=== PATIENT | female | born 1980 | race Caucasian/White ===

== ENCOUNTER 2019-06-12 12:13 | Emergency (ER) | payer SELFPAY ==
[2019-06-12 12:40] VITALS: BP 138/106
[2019-06-12 12:46] LABS: ABSOLUTE EOSINOPHILS # (AUTO) 0.2 10^3/uL (0.0-0.6); ABSOLUTE LYMPHOCYTES (AUTO) 1.8 10^3/uL (0.5-4.7); ABSOLUTE MONOCYTES (AUTO) 0.3 10^3/uL (0.1-1.4); ABSOLUTE NEUT (AUTO) 4.6 10^3/uL (1.7-8.2); BASOPHILS % (AUTO) 0.5 % (0-2); EOSINOPHILS % (AUTO) 2.3 % (0-6); HEMATOCRIT 38.9 % (36.0-47.0); HEMOGLOBIN 13.3 g/dL (12.0-15.5); LYMPHOCYTES % (AUTO) 26.1 % (13-45); MEAN CORPUSCULAR HEMOGLOBIN 30.1 pg (27.0-33.4); MEAN CORPUSCULAR HGB CONC 34.3 g/dL (32.0-36.0); MEAN CORPUSCULAR VOLUME 88 fl (80-97); MONOCYTES % (AUTO) 4.9 % (3-13); PLATELET COUNT 336 10^3/uL (150-450); RED BLOOD COUNT 4.43 10^6/uL (3.72-5.28); RED CELL DISTRIBUTION WIDTH 13.5 % (11.5-14.0); SEGMENTED NEUTROPHILS % (AUTO) 66.2 % (42-78); TOTAL CELLS COUNTED % (AUTO) 100 %; WHITE BLOOD COUNT 6.9 10^3/uL (4.0-10.5)
[2019-06-12 13:13] LABS: ALBUMIN 4.3 g/dL (3.5-5.0); ALKALINE PHOSPHATASE 86 U/L (38-126); ANION GAP 14 (5-19); ASPARTATE AMINO TRANSFERASE 17 U/L (14-36); BILIRUBIN,DIRECT 0.2 mg/dL (0.0-0.4); BILIRUBIN,TOTAL 0.6 mg/dL (0.2-1.3); BLOOD UREA NITROGEN 8 mg/dL (7-20); CALCIUM 9.7 mg/dL (8.4-10.2); CARBON DIOXIDE 23 mmol/L (22-30); CHLORIDE 103 mmol/L (98-107); GLUCOSE 109 mg/dL (75-110); POTASSIUM 3.9 mmol/L (3.6-5.0); TOTAL PROTEIN 7.8 g/dL (6.3-8.2)
[2019-06-12 13:14] LABS: ALCOHOL < 10 mg/dL (NONE DETECTED)
--- NOTE | 2019-06-12 14:18 | ER Document Report ---
Entered by YAIMA RUIZ SCRIBE 06/12/19 1351 Acting as scribe for:JERSEY SHELTON MD ED Seizure - General Chief Complaint: Probable Seizure Stated Complaint: POSSIBLE SEIZURE Time Seen by Provider: 06/12/19 13:41 Mode of Arrival: Medic Information source: Patient Notes: This 39 year old female patient with a history of seizures brought in by EMS presents to the ED today with complaints of a seizure that occurred prior to arrival. Patient states that she takes depakote and tegratol bid, but missed her dose today. Patient states that her last seizure was x2 weeks ago and that she has been having seizures for approximately 21 years. Patient notes that she rec ently moved to [place] from [place] x8 days ago. Patient reports biting her tongue, but denies a headache. During H&P, patient states adamantly that she "does not want to stay and that she has been here long enough". - Related Data Home Medications: Tegratol. Depakote Past Medical History - Social History Smoking Status: Unknown if Ever Smoked Cigarette use (# per day): No Chew tobacco use (# tins/day): No Smoking Education Provided: No Family History: Reviewed & Not Pertinent Patient has suicidal ideation: No Patient has homicidal ideation: No Neurological Medical History: Reports: Hx Seizures Past Surgical History: Reports: Hx Tubal Ligation Review of Systems - Review of Systems Constitutional: No symptoms reported EENT: See HPI, Other - Tongue bite Cardiovascular: No symptoms reported Respiratory: No symptoms reported Gastrointestinal: No symptoms reported Genitourinary: No symptoms reported Female Genitourinary: No symptoms reported Musculoskeletal: No symptoms reported Skin: No symptoms reported Hematologic/Lymphatic: No symptoms reported Neurological/Psychological: See HPI, Seizure. denies: Headaches -: Yes All other systems reviewed and negative Physical Exam - Vital signs Vitals: Pulse Ox 97 06/12/19 12:29 Interpretation: Normal - General General appearance: Appears well, Alert In distress: None - HEENT Head: Normocephalic, Atraumatic Eyes: Normal Pupils: PERRL Mouth/Lips: Other - Left lateral tongue agitation - Respiratory Respiratory status: No respiratory distress Chest status: Nontender Breath sounds: Normal Chest palpation: Normal - Cardiovascular Rhythm: Regular Heart sounds: Normal auscultation Murmur: No - Abdominal Inspection: Normal Distension: No distension Bowel sounds: Normal Tenderness: Nontender Organomegaly: No organomegaly - Back Back: Normal, Nontender - Extremities General upper extremity: Normal inspection General lower extremity: Normal inspection - Neurological Neuro grossly intact: Yes - Psychological Associated symptoms: Normal affect, Normal mood - Skin Skin Temperature: Warm Skin Moisture: Dry Skin Color: Normal Course - Vital Signs Vital signs: Temp Pulse Resp BP Pulse Ox 99.5 F 15 138/106 H 95 06/12/19 12:34 06/12/19 12:33 06/12/19 12:33 06/12/19 12:33 - Laboratory Result Diagrams: 06/12/19 12:20 06/12/19 12:20 Discharge - Discharge Clinical Impression: Seizure Condition: Stable Disposition: AGAINST MEDICAL ADVICE Additional Instructions: Seizure, Known Epileptic You have had a seizure. Seizures may "break through" in an epileptic due to stress of infection or injury, a change in blood chemistry, or drug and alcohol use. Another common cause is failure to take medication as prescribed. Your doctor has evaluated your situation for the likely cause of this seizure. It is important that you follow his advice concerning any medication changes and follow-up care. Further testing of anti-seizure medication levels in your blood may be necessary. If you have a pile driver engineer's license, it's important that you DO NOT DRIVE until given permission by your physician. This seizure must be reported to the pile driver engineer's license bureau. Call the doctor or return if seizures recur, or if new or unusual symptoms arise -- such as severe headache, confusion, excessive sleepiness, local weakness or numbness, neck stiffness, or fever. You have requested to leave the emergency department AGAINST MEDICAL ADVICE prior to completion of your evaluation and work-up today. Be sure to take your Tegretol and Depakote when you get home. Follow-up with a local medical doctor to manage your seizure disorder. RETURN TO THE EMERGENCY ROOM IF ANY NEW OR WORSENING SYMPTOMS. Scribe Attestation: 06/12/19 13:51 I personally performed the services described in the documentation, reviewed and edited the documentation which was dictated to the scribe in my presence, and it accurately records my words and actions. I personally performed the services described in the documentation, reviewed and edited the documentation which was dictated to the scribe in my presence, and it accurately records my words and actions.
--- NOTE | 2019-06-12 21:30 | EKG REPORT ---
SEVERITY:- OTHERWISE NORMAL ECG - SINUS TACHYCARDIA : Confirmed by: Debra Pinedo MD 12-Jun-2019 21:29:44
== END 2019-06-12 14:20 | disposition left against medical advice (07) ==
LOC: ER 12:13
DX: R56.9 Unspecified convulsions (principal); T42.6X6A Underdosing of other antiepileptic and sedative-hypnotic drugs, initial encounter; T42.1X6A Underdosing of iminostilbenes, initial encounter; Z91.14 Patient's other noncompliance with medication regimen; S01.552A Open bite of oral cavity, initial encounter; W50.3XXA Accidental bite by another person, initial encounter; Y93.89 Activity, other specified
CPT/HCPCS: 36415; 80053; 80156; 80164; 80307; 83735; 85025; 93005; 93010; 99284

== ENCOUNTER 2019-07-27 11:25 | Emergency (ER) | payer SELFPAY ==
--- NOTE | 2019-07-27 11:54 | ER Document Report ---
ED General - General Chief Complaint: Seizure Stated Complaint: POSSIBLE SEIZURE Time Seen by Provider: 07/27/19 11:45 Mode of Arrival: Medic Information source: Patient, Emergency Med Personnel Notes: This 39-year-old female with history of seizure presents to the emergency department post witnessed seizure. Patient reports she was at [facility] with her mom and boyfriend. Boyfriend reports he knows when she is about to have a seizure because she will turn her head and not respond to him. He reports she was sitting in a chair and he lowered her to the ground. He reports she had a seizure possibly up to 4 minutes. He is not sure how long it was he did not time it. She was not incontinent of urine. She reports she did not take her Depakote or Tegretol today. She just forgot. She reports that she does have enough of her medications. She denies recent sickness. Denies fever vomiting diarrhea. Patient reports she just has a headache now. - HPI Onset: Just prior to arrival Onset/Duration: Sudden Quality of pain: Achy Associated symptoms: None Exacerbated by: Denies Relieved by: Denies Similar symptoms previously: Yes Recently seen / treated by doctor: No Past Medical History - General Information source: Patient Last Menstrual Period: just finished - Social History Smoking Status: Unknown if Ever Smoked Cigarette use (# per day): No Frequency of alcohol use: None Drug Abuse: None Occupation: none Lives with: Family Family History: Reviewed & Not Pertinent Patient has suicidal ideation: No Patient has homicidal ideation: No Neurological Medical History: Reports: Hx Seizures Past Surgical History: Reports: Hx Tubal Ligation Review of Systems - Review of Systems Notes: Review HPI for review of systems., All other systems negative Physical Exam - Vital signs Vitals: Resp Pulse Ox 18 96 07/27/19 11:27 07/27/19 11:27 - General General appearance: Alert In distress: None - HEENT Head: Normocephalic Eyes: Normal, Scleral icterus Extraocular movements intact: Yes Pupils: PERRL Nasal: Normal Pharynx: Normal Neck: Normal, Supple. No: Lymphadenopathy - Respiratory Respiratory status: No respiratory distress Chest status: Nontender Breath sounds: Normal Chest palpation: Normal - Cardiovascular Rhythm: Regular Heart sounds: Normal auscultation Murmur: No - Abdominal Inspection: Normal Distension: No distension Bowel sounds: Normal Tenderness: Nontender Organomegaly: No organomegaly - Extremities General upper extremity: Normal ROM General lower extremity: Normal ROM - Neurological Neuro grossly intact: Yes Cognition: Normal Orientation: AAOx4 Brooks Coma Scale Eye Opening: Spontaneous [place] Coma Scale Verbal: Oriented Brooks Coma Scale Motor: Obeys Commands Hodgen Coma Scale Total: 15 Speech: Normal - Psychological Associated symptoms: Normal affect, Normal mood - Skin Skin Temperature: Warm Skin Moisture: Dry Skin Color: Normal Course - Re-evaluation Re-evalutation: 07/27/19 13:44 39-year-old female with history of seizures all her life presents emergency department post seizure. Seizure was witnessed by her boyfriend. She did not fall or hit her head. He lowered her to the ground. Labs unremarkable although patient was positive for cocaine in her urine. Also her levels of Depakote and Tegretol are low. She was instructed on importance of following up with her primary care provider to have this reviewed and possibly increased her dosages. She reports she goes to the [facility] department for her seizure medication. She was encouraged to quit using cocaine. Patient also reports that she is homeless. apartment house manager was contacted and will give her information regarding the snf here in [facility]. Laboratory 07/27/19 07/27/19 07/27/19 11:51 11:51 11:51 WBC 7.7 RBC 4.40 Hgb 13.5 Hct 39.4 MCV 90 MCH 30.8 MCHC 34.4 RDW 14.4 H Plt Count 326 Lymph % (Auto) 13.4 [place] % (Auto) 4.3 Eos % (Auto) 0.7 Baso % (Auto) 0.5 Absolute Neuts (auto) 6.2 Absolute Lymphs (auto) 1.0 Absolute Monos (auto) 0.3 Absolute Eos (auto) 0.1 Absolute Basos (auto) 0.0 Seg Neutrophils % 81.1 H Sodium 140.8 Potassium 4.0 Chloride 107 Carbon Dioxide 26 Anion Gap 8 BUN 10 Creatinine 0.63 Est GFR ( Amer) > 60 Est GFR (MDRD) Non-Af > 60 Glucose 116 H Calcium 9.1 Magnesium 2.3 Total Bilirubin 0.3 Direct Bilirubin 0.3 Neonat Total Bilirubin Not Reportable Neonat Direct Bilirubin Not Reportable Neonat Indirect Bili Not Reportable AST 17 ALT 11 Alkaline Phosphatase 57 Total Protein 7.3 Albumin 4.0 Serum HCG, Qual Urine Color Urine Appearance Urine pH Ur Specific Lohman Urine Protein Urine Glucose (UA) Urine Ketones Urine Blood Urine Nitrite Urine Bilirubin Urine Urobilinogen Ur Leukocyte Esterase Urine WBC (Auto) Urine RBC (Auto) U Hyaline Cast (Auto) Urine Bacteria (Auto) Squamous Epi Cells Auto Urine Mucus (Auto) Urine Ascorbic Acid Urine Opiates Screen Urine Methadone Screen Ur Barbiturates Screen Valproic Acid < 10.0 L Carbamazepine Ur Phencyclidine Scrn Ur Amphetamines Screen U Benzodiazepines Scrn Urine Cocaine Screen U Marijuana (THC) Screen Serum Alcohol < 10 07/27/19 07/27/19 07/27/19 11:51 11:55 12:50 WBC RBC Hgb Hct MCV MCH MCHC RDW Plt Count Lymph % (Auto) [place] % (Auto) Eos % (Auto) Baso % (Auto) Absolute Neuts (auto) Absolute Lymphs (auto) Absolute Monos (auto) Absolute Eos (auto) Absolute Basos (auto) Seg Neutrophils % Sodium Potassium Chloride Carbon Dioxide Anion Gap BUN Creatinine Est GFR ( Amer) Est GFR (MDRD) Non-Af Glucose Calcium Magnesium Total Bilirubin Direct Bilirubin Neonat Total Bilirubin Neonat Direct Bilirubin Neonat Indirect Bili AST ALT Alkaline Phosphatase Total Protein Albumin Serum HCG, Qual NEGATIVE Urine Color YELLOW Urine Appearance SLIGHTLY-CLOUDY Urine pH 5.0 Ur Specific Lohman 1.020 Urine Protein 100 H Urine Glucose (UA) NEGATIVE Urine Ketones NEGATIVE Urine Blood LARGE H Urine Nitrite NEGATIVE Urine Bilirubin NEGATIVE Urine Urobilinogen NEGATIVE Ur Leukocyte Esterase NEGATIVE Urine WBC (Auto) 8 Urine RBC (Auto) 107 U Hyaline Cast (Auto) 6 Urine Bacteria (Auto) TRACE Squamous Epi Cells Auto 2 Urine Mucus (Auto) RARE Urine Ascorbic Acid NEGATIVE Urine Opiates Screen Urine Methadone Screen Ur Barbiturates Screen Valproic Acid Carbamazepine < 2.4 L Ur Phencyclidine Scrn Ur Amphetamines Screen U Benzodiazepines Scrn Urine Cocaine Screen U Marijuana (THC) Screen Serum Alcohol 07/27/19 12:50 WBC RBC Hgb Hct MCV MCH MCHC RDW Plt Count Lymph % (Auto) [place] % (Auto) Eos % (Auto) Baso % (Auto) Absolute Neuts (auto) Absolute Lymphs (auto) Absolute Monos (auto) Absolute Eos (auto) Absolute Basos (auto) Seg Neutrophils % Sodium Potassium Chloride Carbon Dioxide Anion Gap BUN Creatinine Est GFR ( Amer) Est GFR (MDRD) Non-Af Glucose Calcium Magnesium Total Bilirubin Direct Bilirubin Neonat Total Bilirubin Neonat Direct Bilirubin Neonat Indirect Bili AST ALT Alkaline Phosphatase Total Protein Albumin Serum HCG, Qual Urine Color Urine Appearance Urine pH Ur Specific Lohman Urine Protein Urine Glucose (UA) Urine Ketones Urine Blood Urine Nitrite Urine Bilirubin Urine Urobilinogen Ur Leukocyte Esterase Urine WBC (Auto) Urine RBC (Auto) U Hyaline Cast (Auto) Urine Bacteria (Auto) Squamous Epi Cells Auto Urine Mucus (Auto) Urine Ascorbic Acid Urine Opiates Screen NEGATIVE Urine Methadone Screen NEGATIVE Ur Barbiturates Screen NEGATIVE Valproic Acid Carbamazepine Ur Phencyclidine Scrn NEGATIVE Ur Amphetamines Screen NEGATIVE U Benzodiazepines Scrn NEGATIVE Urine Cocaine Screen UNCONFIRMED POSITIVE U Marijuana (THC) Screen NEGATIVE Serum Alcohol - Vital Signs Vital signs: Temp Pulse Resp BP Pulse Ox 98.2 F 18 101/75 99 07/27/19 12:04 07/27/19 14:01 07/27/19 14:01 07/27/19 14:01 - Laboratory Result Diagrams: 07/27/19 11:51 07/27/19 11:51 Laboratory results interpreted by me: 07/27/19 07/27/19 07/27/19 11:51 11:51 11:51 RDW 14.4 H Seg Neutrophils % 81.1 H Glucose 116 H Urine Protein Urine Blood Valproic Acid < 10.0 L Carbamazepine 07/27/19 07/27/19 11:55 12:50 RDW Seg Neutrophils % Glucose Urine Protein 100 H Urine Blood LARGE H Valproic Acid Carbamazepine < 2.4 L Discharge - Discharge Clinical Impression: Seizure, Cocaine abuse Condition: Stable Disposition: HOME, SELF-CARE Instructions: Cocaine Abuse ([facility]), Seizure, Known Epileptic ([facility]) Additional Instructions: *You have been evaluated post seizure, cocaine abuse *Take medication as prescribed *Avoid using cocaine *Follow up with your primary care provider within one week for recheck and to discuss your dosages of Depakote and Tegretol. Your therapeutic levels of both medications were low. *Return to ED for worsening condition, changes, needs, concerns
[2019-07-27] MEDS ORDERED: IBUPROFEN 800 MG TABLET PO ONE (11:58)
[2019-07-27 12:03] LABS: ABSOLUTE EOSINOPHILS # (AUTO) 0.1 10^3/uL (0.0-0.6); ABSOLUTE MONOCYTES (AUTO) 0.3 10^3/uL (0.1-1.4); ABSOLUTE NEUT (AUTO) 6.2 10^3/uL (1.7-8.2); BASOPHILS % (AUTO) 0.5 % (0-2); EOSINOPHILS % (AUTO) 0.7 % (0-6); HEMATOCRIT 39.4 % (36.0-47.0); HEMOGLOBIN 13.5 g/dL (12.0-15.5); LYMPHOCYTES % (AUTO) 13.4 % (13-45); MEAN CORPUSCULAR HEMOGLOBIN 30.8 pg (27.0-33.4); MEAN CORPUSCULAR HGB CONC 34.4 g/dL (32.0-36.0); MEAN CORPUSCULAR VOLUME 90 fl (80-97); MONOCYTES % (AUTO) 4.3 % (3-13); PLATELET COUNT 326 10^3/uL (150-450); RED CELL DISTRIBUTION WIDTH 14.4 % (11.5-14.0); SEGMENTED NEUTROPHILS % (AUTO) 81.1 % (42-78); TOTAL CELLS COUNTED % (AUTO) 100 %; WHITE BLOOD COUNT 7.7 10^3/uL (4.0-10.5)
[2019-07-27 12:32] LABS: ALKALINE PHOSPHATASE 57 U/L (38-126); ANION GAP 8 (5-19); ASPARTATE AMINO TRANSFERASE 17 U/L (14-36); BILIRUBIN,DIRECT 0.3 mg/dL (0.0-0.4); BILIRUBIN,TOTAL 0.3 mg/dL (0.2-1.3); BLOOD UREA NITROGEN 10 mg/dL (7-20); CALCIUM 9.1 mg/dL (8.4-10.2); CARBON DIOXIDE 26 mmol/L (22-30); CHLORIDE 107 mmol/L (98-107); GLUCOSE 116 mg/dL (75-110); TOTAL PROTEIN 7.3 g/dL (6.3-8.2)
[2019-07-27 12:34] LABS: ALCOHOL < 10 mg/dL (NONE DETECTED)
[2019-07-27 13:06] LABS: APPEARANCE,URINE SLIGHTLY-CLOUDY; BILIRUBIN,URINE NEGATIVE (NEGATIVE); COLOR,URINE YELLOW; GLUCOSE, URINE NEGATIVE (NEGATIVE); KETONES,URINE NEGATIVE (NEGATIVE); LEUKOCYTE ESTERASE,URINE NEGATIVE (NEGATIVE); NITRITE,URINE NEGATIVE (NEGATIVE); PROTEIN,URINE 100 mg/dL (NEGATIVE); UROBILINOGEN,URINE NEGATIVE mg/dL (<2.0)
[2019-07-27 13:30] LABS: URINE AMPHETAMINES SCREEN NEGATIVE; URINE BARBITURATES SCREEN NEGATIVE; URINE BENZODIAZEPINES SCREEN NEGATIVE; URINE MARIJUANA (THC) SCREEN NEGATIVE; URINE METHADONE SCREEN NEGATIVE; URINE PHENCYCLIDINE SCREEN NEGATIVE
[2019-07-27 13:31] LABS: URINE COCAINE SCREEN UNCONFIRMED POSITIVE
--- NOTE | 2019-07-27 13:55 | EKG REPORT ---
SEVERITY:- NORMAL ECG - SINUS RHYTHM : Confirmed by: Debra Pinedo MD 27-Jul-2019 13:54:06
[2019-07-27 14:21] VITALS: BP 101/75
== END 2019-07-27 14:20 | disposition home or self-care (01) ==
LOC: ER 11:25
DX: G40.909 Epilepsy, unspecified, not intractable, without status epilepticus (principal); Z98.51 Tubal ligation status
CPT/HCPCS: 36415; 80053; 80156; 80164; 80307; 81001; 83735; 84703; 85025; 93005; 93010; 99284

== ENCOUNTER 2019-10-06 14:36 | Emergency (ER) | payer SELFPAY ==
[2019-10-06] MEDS ORDERED: IBUPROFEN 800 MG TABLET PO ONE (15:21)
--- NOTE | 2019-10-06 15:23 | ER Document Report ---
ED Medical Screen (RME) - General Chief Complaint: Seizure Stated Complaint: POSSIBLE SEIZURE Time Seen by Provider: 10/06/19 15:16 Mode of Arrival: Medic Information source: Patient Notes: 39-year-old female with history of cocaine abuse and seizures presents to the emergency department with report of seizure. Patient was walking outside with her boyfriend when she had a seizure. Patient is supposed to be taking Tegretol and Depakote but has not taken any medication since June when she was here last. Patient is homeless. Denies urinary incontinence. Reports she has a headache now. Unsure how long the seizure was. No complaints of fever, vomiting or diarrhea. Patient reports she has not used cocaine in a while. I have greeted and performed a rapid initial assessment of this patient. A comprehensive ED assessment and evaluation of the patient, analysis of test results and completion of the medical decision making process will be conducted by additional ED providers. TRAVEL OUTSIDE OF THE [place] IN LAST 30 DAYS: No Past Medical History - General Information source: Patient Last Menstrual Period: current Neurological Medical History: Reports: Hx Seizures Past Surgical History: Reports: Hx Tubal Ligation Physical Exam - Vital signs Vitals: Temp Pulse Resp BP Pulse Ox 99.5 F 86 16 119/81 98 10/06/19 14:42 10/06/19 14:42 10/06/19 14:42 10/06/19 14:42 10/06/19 14:42 Course - Vital Signs Vital signs: Temp Pulse Resp BP Pulse Ox 99.5 F 86 16 119/81 98 10/06/19 14:42 10/06/19 14:42 10/06/19 14:42 10/06/19 14:42 10/06/19 14:42
[2019-10-06 15:54] LABS: ABSOLUTE LYMPHOCYTES (AUTO) 1.3 10^3/uL (0.5-4.7); ABSOLUTE MONOCYTES (AUTO) 0.4 10^3/uL (0.1-1.4); BASOPHILS % (AUTO) 0.3 % (0-2); EOSINOPHILS % (AUTO) 0.2 % (0-6); HEMATOCRIT 36.8 % (36.0-47.0); HEMOGLOBIN 12.6 g/dL (12.0-15.5); LYMPHOCYTES % (AUTO) 14.6 % (13-45); MEAN CORPUSCULAR HEMOGLOBIN 30.5 pg (27.0-33.4); MEAN CORPUSCULAR HGB CONC 34.4 g/dL (32.0-36.0); MEAN CORPUSCULAR VOLUME 89 fl (80-97); MONOCYTES % (AUTO) 4.7 % (3-13); PLATELET COUNT 323 10^3/uL (150-450); RED BLOOD COUNT 4.15 10^6/uL (3.72-5.28); RED CELL DISTRIBUTION WIDTH 14.7 % (11.5-14.0); SEGMENTED NEUTROPHILS % (AUTO) 80.2 % (42-78); TOTAL CELLS COUNTED % (AUTO) 100 %; WHITE BLOOD COUNT 8.7 10^3/uL (4.0-10.5)
--- NOTE | 2019-10-06 16:13 | ER Document Report ---
ED Seizure - General Chief Complaint: Seizure Stated Complaint: POSSIBLE SEIZURE Time Seen by Provider: 10/06/19 15:16 Primary Care Provider: DOM DEL RIO DO [NO LOCAL MD] - Follow up in 3-5 days (Call to establish outpatient care.) Mode of Arrival: Medic Information source: Patient Notes: 39-year-old female past medical history significant for anxiety and grand mal seizure disorder for years. Presents emergency room after having a seizure while walking down the street with her boyfriend. Patient does not recall what happened. States boyfriend did not give any information. She states that she bit her tongue. Denies any other injuries. Denies any incontinence. Denies being postictal. Patient is currently without seizure medications. Does not know her current dosages. Patient states she does not have insurance and therefore cannot afford her medications. Patient does admit to doing crack cocaine. No other complaints. Currently on her menstrual cycle. TRAVEL OUTSIDE OF THE [place] IN LAST 30 DAYS: No - Related Data Allergies/Adverse Reactions: No Known Allergies Allergy (Unverified 10/06/19 15:25) Past Medical History - General Information source: Patient Last Menstrual Period: current - Social History Smoking Status: Current Every Day Smoker Chew tobacco use (# tins/day): No Frequency of alcohol use: None Drug Abuse: Cocaine, Heroin Lives with: Friend Family History: Reviewed & Not Pertinent Patient has homicidal ideation: No Neurological Medical History: Reports: Hx Seizures Past Surgical History: Reports: Hx Tubal Ligation Review of Systems - Review of Systems Constitutional: No symptoms reported Cardiovascular: No symptoms reported Respiratory: No symptoms reported Musculoskeletal: No symptoms reported Neurological/Psychological: Seizure -: Yes All other systems reviewed and negative Physical Exam - Vital signs Vitals: Temp 99.5 F 10/06/19 14:37 - General General appearance: Appears well, Alert In distress: None - HEENT Head: Normocephalic, Atraumatic. No: Goodwin's sign, Rac[place]'s eyes Cornea: Superficial foreign body Pupils: PERRL Fundascopic: Normal Mouth/Lips: Other - There is a small abrasion noted to the left aspect of the tongue. There is no active bleeding noted. - Respiratory Respiratory status: No respiratory distress Chest status: Nontender Breath sounds: Normal Chest palpation: Normal - Cardiovascular Rhythm: Regular Heart sounds: Normal auscultation Murmur: No - Back Back: Normal, Nontender - Extremities General upper extremity: Normal inspection, Nontender, Normal color, Normal ROM, Normal temperature General lower extremity: Normal inspection, Nontender, Normal color, Normal ROM, Normal temperature, Normal weight bearing. No: Lisseth's sign - Neurological Neuro grossly intact: Yes Cognition: Normal Orientation: AAOx4 [place] Coma Scale Eye Opening: Spontaneous [place] Coma Scale Verbal: Oriented [place] Coma Scale Motor: Obeys Commands Brooks Coma Scale Total: 15 Speech: Normal Motor strength normal: LUE, RUE, LLE, RLE Sensory: Normal - Skin Skin Temperature: Warm Skin Moisture: Dry Skin Color: Normal Course - Re-evaluation Re-evalutation: 10/06/19 18:10 Patient is resting comfortably no acute distress. No seizures since arrival to the emergency room. She is currently asymptomatic. Neurologically and neurovascularly intact. Ambulatory with a steady gait. Patient currently not taking her medications secondary to no insurance. Offered to try to reach out to patient's pharmacy to find out her medication dosages. Patient is not interested in getting any medications today. She states she will follow-up with the health department this week for ongoing care of her chronic seizures. Reviewed all lab results with patient. She was counseled on need to stop use of cocaine. Patient was given strict return to the emergency room guidelines. Return for any new or worsening symptoms. All questions were answered. Patient verbalized understanding and agrees with plan of care. 10/06/19 20:52 - Vital Signs Vital signs: Temp Pulse Resp BP Pulse Ox 98.7 F 80 16 108/49 L 100 10/06/19 18:21 10/06/19 18:21 10/06/19 18:21 10/06/19 18:21 10/06/19 18:21 - Laboratory Result Diagrams: 10/06/19 15:35 10/06/19 15:35 Laboratory results interpreted by me: 10/06/19 10/06/19 10/06/19 15:35 15:35 16:52 RDW 14.7 H Seg Neutrophils % 80.2 H Urine Protein Urine Ketones Urine Blood Urine Urobilinogen Urine Ascorbic Acid Valproic Acid < 10.0 L Carbamazepine < 2.2 L 10/06/19 16:52 RDW Seg Neutrophils % Urine Protein 100 H Urine Ketones 20 H Urine Blood LARGE H Urine Urobilinogen 2.0 H Urine Ascorbic Acid 40 H Valproic Acid Carbamazepine Discharge - Discharge Clinical Impression: Seizure disorder Condition: Stable Disposition: HOME, SELF-CARE Instructions: Seizure, Known Epileptic ([facility]) Additional Instructions: It is imperative that you follow-up with the free clinic for management of your chronic seizure disorder and chronic seizure medications. Return for any new or worsening symptoms. Referrals: DOM DEL RIO DO [NO LOCAL MD] - Follow up in 3-5 days (Call to establish outpatient care.)
[2019-10-06 16:16] LABS: ALBUMIN 4.2 g/dL (3.5-5.0); ALKALINE PHOSPHATASE 65 U/L (38-126); ANION GAP 6 (5-19); ASPARTATE AMINO TRANSFERASE 24 U/L (14-36); BILIRUBIN,TOTAL 0.5 mg/dL (0.2-1.3); BLOOD UREA NITROGEN 9 mg/dL (7-20); CALCIUM 9.3 mg/dL (8.4-10.2); CARBON DIOXIDE 27 mmol/L (22-30); CHLORIDE 106 mmol/L (98-107); GLUCOSE 110 mg/dL (75-110); POTASSIUM 4.3 mmol/L (3.6-5.0); TOTAL PROTEIN 7.3 g/dL (6.3-8.2)
[2019-10-06 17:38] LABS: APPEARANCE,URINE SLIGHTLY-CLOUDY; BILIRUBIN,URINE NEGATIVE (NEGATIVE); GLUCOSE, URINE NEGATIVE (NEGATIVE); KETONES,URINE 20 mg/dL (NEGATIVE); LEUKOCYTE ESTERASE,URINE NEGATIVE (NEGATIVE); NITRITE,URINE NEGATIVE (NEGATIVE); PROTEIN,URINE 100 mg/dL (NEGATIVE); URINE SPECIFIC GRAVITY 1.024
[2019-10-06 17:39] LABS: COLOR,URINE RED
[2019-10-06 17:47] LABS: URINE AMPHETAMINES SCREEN NEGATIVE; URINE BARBITURATES SCREEN NEGATIVE; URINE BENZODIAZEPINES SCREEN NEGATIVE; URINE MARIJUANA (THC) SCREEN NEGATIVE; URINE METHADONE SCREEN NEGATIVE; URINE PHENCYCLIDINE SCREEN NEGATIVE
[2019-10-06 17:48] LABS: URINE COCAINE SCREEN UNCONFIRMED POSITIVE
[2019-10-06 18:22] VITALS: BP 108/49
== END 2019-10-06 18:21 | disposition home or self-care (01) ==
LOC: ER 14:36
DX: G40.409 Other generalized epilepsy and epileptic syndromes, not intractable, without status epilepticus (principal); T50.906A Underdosing of unspecified drugs, medicaments and biological substances, initial encounter; Z91.120 Patient's intentional underdosing of medication regimen due to financial hardship; Z91.14 Patient's other noncompliance with medication regimen; S00.512A Abrasion of oral cavity, initial encounter; X58.XXXA Exposure to other specified factors, initial encounter; F14.10 Cocaine abuse, uncomplicated; F11.10 Opioid abuse, uncomplicated; F17.200 Nicotine dependence, unspecified, uncomplicated
CPT/HCPCS: 36415; 80053; 80156; 80164; 80307; 81001; 81025; 85025; 99284

== ENCOUNTER 2019-11-06 22:24 | Emergency (ER) | payer SELFPAY ==
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
[2019-11-07 03:17] LABS: ABSOLUTE BASOPHILS # (AUTO) 0.1 10^3/uL (0.0-0.2); ABSOLUTE EOSINOPHILS # (AUTO) 0.2 10^3/uL (0.0-0.6); ABSOLUTE LYMPHOCYTES (AUTO) 2.9 10^3/uL (0.5-4.7); ABSOLUTE MONOCYTES (AUTO) 0.4 10^3/uL (0.1-1.4); ABSOLUTE NEUT (AUTO) 4.1 10^3/uL (1.7-8.2); EOSINOPHILS % (AUTO) 2.8 % (0-6); HEMATOCRIT 35.6 % (36.0-47.0); LYMPHOCYTES % (AUTO) 37.8 % (13-45); MEAN CORPUSCULAR HEMOGLOBIN 29.8 pg (27.0-33.4); MEAN CORPUSCULAR HGB CONC 33.9 g/dL (32.0-36.0); MEAN CORPUSCULAR VOLUME 88 fl (80-97); MONOCYTES % (AUTO) 5.1 % (3-13); PLATELET COUNT 373 10^3/uL (150-450); RED BLOOD COUNT 4.04 10^6/uL (3.72-5.28); RED CELL DISTRIBUTION WIDTH 14.6 % (11.5-14.0); SEGMENTED NEUTROPHILS % (AUTO) 53.3 % (42-78); TOTAL CELLS COUNTED % (AUTO) 100 %; WHITE BLOOD COUNT 7.8 10^3/uL (4.0-10.5)
[2019-11-07 03:35] LABS: APPEARANCE,URINE TURBID; BILIRUBIN,URINE NEGATIVE (NEGATIVE); COLOR,URINE AMBER; GLUCOSE, URINE NEGATIVE (NEGATIVE); KETONES,URINE NEGATIVE (NEGATIVE); LEUKOCYTE ESTERASE,URINE TRACE (NEGATIVE); NITRITE,URINE NEGATIVE (NEGATIVE); PROTEIN,URINE NEGATIVE (NEGATIVE); URINE SPECIFIC GRAVITY 1.025
[2019-11-07 03:40] LABS: ACETAMINOPHEN < 10 ug/mL (10-30); ALBUMIN 4.4 g/dL (3.5-5.0); ALCOHOL < 10 mg/dL (NONE DETECTED); ALKALINE PHOSPHATASE 82 U/L (38-126); ANION GAP 8 (5-19); ASPARTATE AMINO TRANSFERASE 17 U/L (14-36); BILIRUBIN,TOTAL 0.5 mg/dL (0.2-1.3); BLOOD UREA NITROGEN 12 mg/dL (7-20); CALCIUM 9.9 mg/dL (8.4-10.2); CARBON DIOXIDE 29 mmol/L (22-30); CHLORIDE 102 mmol/L (98-107); GLUCOSE 108 mg/dL (75-110); POTASSIUM 4.6 mmol/L (3.6-5.0); SALICYLATE < 1.0 mg/dL (2.0-20.0); TOTAL PROTEIN 7.8 g/dL (6.3-8.2)
[2019-11-07 03:48] LABS: ADD MANUAL MICROSCOPIC YES
[2019-11-07 03:49] LABS: BACTERIA,URINE 1+ /HPF; CALCIUM OXALATE CRYSTALS,UR FEW /HPF
[2019-11-07 04:00] LABS: URINE AMPHETAMINES SCREEN NEGATIVE; URINE BARBITURATES SCREEN NEGATIVE; URINE BENZODIAZEPINES SCREEN NEGATIVE; URINE MARIJUANA (THC) SCREEN NEGATIVE; URINE METHADONE SCREEN NEGATIVE; URINE PHENCYCLIDINE SCREEN NEGATIVE
[2019-11-07 04:06] LABS: URINE COCAINE SCREEN UNCONFIRMED POSITIVE
[2019-11-07 08:06] VITALS: BP 122/80
--- NOTE | 2019-11-07 11:11 | EKG REPORT ---
SEVERITY:- NORMAL ECG - SINUS RHYTHM : Confirmed by: Debra Pinedo MD 07-Nov-2019 11:09:59
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
== END 2019-11-07 13:13 | disposition home or self-care (01) ==
LOC: ER 22:24
DX: R45.851 Suicidal ideations (principal); F31.9 Bipolar disorder, unspecified; F41.9 Anxiety disorder, unspecified; Z65.8 Other specified problems related to psychosocial circumstances; F14.90 Cocaine use, unspecified, uncomplicated; Z59.0 Homelessness; G40.909 Epilepsy, unspecified, not intractable, without status epilepticus; Z79.899 Other long term (current) drug therapy; F43.9 Reaction to severe stress, unspecified; F17.200 Nicotine dependence, unspecified, uncomplicated; Z91.14 Patient's other noncompliance with medication regimen
CPT/HCPCS: 36415; 80053; 80307; 81001; 84703; 85025; 93005; 93010; 99284

== ENCOUNTER 2019-11-07 21:48 | Emergency (ER) | payer SELFPAY ==
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
[2019-11-08 00:05] LABS: ABSOLUTE EOSINOPHILS # (AUTO) 0.2 10^3/uL (0.0-0.6); ABSOLUTE LYMPHOCYTES (AUTO) 2.6 10^3/uL (0.5-4.7); ABSOLUTE MONOCYTES (AUTO) 0.5 10^3/uL (0.1-1.4); ABSOLUTE NEUT (AUTO) 4.8 10^3/uL (1.7-8.2); BASOPHILS % (AUTO) 0.6 % (0-2); HEMATOCRIT 31.2 % (36.0-47.0); HEMOGLOBIN 10.8 g/dL (12.0-15.5); LYMPHOCYTES % (AUTO) 32.4 % (13-45); MEAN CORPUSCULAR HEMOGLOBIN 30.2 pg (27.0-33.4); MEAN CORPUSCULAR HGB CONC 34.5 g/dL (32.0-36.0); MEAN CORPUSCULAR VOLUME 87 fl (80-97); MONOCYTES % (AUTO) 6.1 % (3-13); PLATELET COUNT 306 10^3/uL (150-450); RED BLOOD COUNT 3.57 10^6/uL (3.72-5.28); RED CELL DISTRIBUTION WIDTH 13.8 % (11.5-14.0); SEGMENTED NEUTROPHILS % (AUTO) 58.9 % (42-78); TOTAL CELLS COUNTED % (AUTO) 100 %; WHITE BLOOD COUNT 8.1 10^3/uL (4.0-10.5)
[2019-11-08 00:07] LABS: APPEARANCE,URINE CLEAR; BILIRUBIN,URINE NEGATIVE (NEGATIVE); COLOR,URINE YELLOW; GLUCOSE, URINE NEGATIVE (NEGATIVE); KETONES,URINE NEGATIVE (NEGATIVE); LEUKOCYTE ESTERASE,URINE NEGATIVE (NEGATIVE); NITRITE,URINE NEGATIVE (NEGATIVE); PROTEIN,URINE NEGATIVE (NEGATIVE); URINE SPECIFIC GRAVITY 1.023
[2019-11-08 00:18] LABS: ALBUMIN 3.6 g/dL (3.5-5.0); ALKALINE PHOSPHATASE 72 U/L (38-126); ANION GAP 5 (5-19); ASPARTATE AMINO TRANSFERASE 13 U/L (14-36); BILIRUBIN,TOTAL 0.4 mg/dL (0.2-1.3); BLOOD UREA NITROGEN 13 mg/dL (7-20); CALCIUM 8.8 mg/dL (8.4-10.2); CARBON DIOXIDE 27 mmol/L (22-30); CHLORIDE 104 mmol/L (98-107); GLUCOSE 100 mg/dL (75-110); POTASSIUM 3.8 mmol/L (3.6-5.0); TOTAL PROTEIN 6.6 g/dL (6.3-8.2)
[2019-11-08 00:20] LABS: ACETAMINOPHEN < 10 ug/mL (10-30); ALCOHOL < 10 mg/dL (NONE DETECTED); SALICYLATE < 1.0 mg/dL (2.0-20.0)
[2019-11-08 00:27] LABS: URINE AMPHETAMINES SCREEN NEGATIVE; URINE BARBITURATES SCREEN NEGATIVE; URINE BENZODIAZEPINES SCREEN NEGATIVE; URINE MARIJUANA (THC) SCREEN NEGATIVE; URINE METHADONE SCREEN NEGATIVE; URINE PHENCYCLIDINE SCREEN NEGATIVE
[2019-11-08 00:30] LABS: URINE COCAINE SCREEN UNCONFIRMED POSITIVE
--- NOTE | 2019-11-08 02:13 | ER Document Report ---
ED General - General Chief Complaint: Suicidal Ideation Stated Complaint: ANXIETY/PSYCH PROBLEM Time Seen by Provider: 11/07/19 22:32 Mode of Arrival: Ambulatory Notes: Patient is a 39-year-old female with a history of anxiety and seizure disorder who presents the emergency department the chief complaint of increasing anxiety recently. She states that she is been having some relationship stressors, her boyfriend thinks that she is cheating and she states she has not. She states they have been arguing a lot and her anxiety has increased. She reports that she used to be on Celexa, Depakote and sometimes Xanax. States she has not been on any of these medications in a long time due to not having a job and lack of financial resources. She was here voluntarily yesterday and left voluntarily advising she will follow-up outpatient at that time. She returns stating she does not have the resources and would like some further assistance here. She does admit to the same fleeting thoughts of suicidal ideation. Denies any at this time. Denies any homicidal ideation, hallucinations or delusions. TRAVEL OUTSIDE OF THE [place] IN LAST 30 DAYS: No - Related Data Allergies/Adverse Reactions: No Known Allergies Allergy (Unverified 11/07/19 22:41) Past Medical History - General Information source: Patient - Social History Smoking Status: Current Every Day Smoker Frequency of alcohol use: Occasional Drug Abuse: Cocaine Family History: Reviewed & Not Pertinent Patient has homicidal ideation: Yes Neurological Medical History: Reports: Hx Seizures Psychiatric Medical History: Reports: Hx Bipolar Disorder Past Surgical History: Reports: Hx Tubal Ligation Review of Systems - Review of Systems Neurological/Psychological: Anxiety -: Yes All other systems reviewed and negative Physical Exam - Vital signs Vitals: Temp 98.9 F 11/07/19 21:49 - General General appearance: Appears well, Alert In distress: None - HEENT Head: Normocephalic, Atraumatic Eyes: Normal Pupils: PERRL - Respiratory Respiratory status: No respiratory distress Chest status: Nontender Breath sounds: Normal Chest palpation: Normal - Cardiovascular Rhythm: Regular Heart sounds: Normal auscultation - Neurological Neuro grossly intact: Yes Cognition: Normal Orientation: AAOx4 Brooks Coma Scale Eye Opening: Spontaneous [place] Coma Scale Verbal: Oriented Brooks Coma Scale Motor: Obeys Commands Brooks Coma Scale Total: 15 Speech: Normal - Psychological Associated symptoms: Normal affect, Normal mood - Skin Skin Temperature: Warm Skin Moisture: Dry Skin Color: Normal Course - Re-evaluation Re-evalutation: 11/08/19 02:12 Patient is well-appearing. She is alert and oriented. She is not currently suicidal or homicidal. She is reliable. She states that she will happily remain here in the emergency department until the psychiatry team comes in in the morning for evaluation and further management. She is comfortable at this time, sleeping in the room and easily arousable. She did have a UDS positive for cocaine. Otherwise work-up largely unremarkable, medically cleared. Pending psychiatry consult. - Vital Signs Vital signs: Temp Pulse Resp BP Pulse Ox 98.9 F 94 18 117/64 98 11/07/19 22:25 11/07/19 22:25 11/07/19 22:25 11/07/19 22:25 11/07/19 22:25 - Laboratory Result Diagrams: 11/07/19 23:34 11/07/19 23:34 Laboratory results interpreted by me: 11/07/19 11/07/19 11/07/19 23:30 23:34 23:34 RBC 3.57 L Hgb 10.8 L Hct 31.2 L Sodium 135.8 L AST 13 L Urine Urobilinogen 2.0 H Salicylates < 1.0 L Acetaminophen < 10 L Discharge - Discharge Clinical Impression: Anxiety, Cocaine use Condition: Stable Disposition: OTHER
--- NOTE | 2019-11-08 08:06 | EKG REPORT ---
SEVERITY:- NORMAL ECG - SINUS RHYTHM : Confirmed by: Debra Pinedo MD 08-Nov-2019 08:05:01
--- NOTE | 2019-11-08 14:01 | ER Document Report ---
Doctor's Note Notes: 11/08/19 13:54 Patient is resting quietly at this time. I spoke with Lizy from the psychiatric team patient is not suicidal or homicidal will be discharged to follow-up at [place] outpatient. Will prescribe Tegretol and BuSpar for the patient per the recommendations. Patient is asking whether [facility] has a mental facility. Lizy will discuss this with her
[2019-11-08 14:35] VITALS: BP 120/74
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
== END 2019-11-08 14:33 | disposition home or self-care (01) ==
LOC: ER 21:48
DX: R45.851 Suicidal ideations (principal); F41.9 Anxiety disorder, unspecified; F14.90 Cocaine use, unspecified, uncomplicated; Z65.8 Other specified problems related to psychosocial circumstances
CPT/HCPCS: 36415; 80307; 81001; 84703; 87070; 93005; 93010; 99285

== ENCOUNTER 2019-11-13 12:07 | Emergency (ER) | payer SELFPAY ==
[2019-11-13 12:57] VITALS: BP 121/69
[2019-11-13] MEDS ORDERED: CEPHALEXIN 500 MG CAPSULE PO ONE (13:07)
--- NOTE | 2019-11-13 13:11 | ER Document Report ---
HPI - HPI Time Seen by Provider: 11/13/19 13:02 Notes: CHIEF COMPLAINT: Possible left foot infection HPI: 39-year-old homeless female presenting to the emergency department complaining of possible infection on the dorsal aspect of the left foot. States is been ongoing over the last for 5 days. She was wearing flip-flops and believes that one may have rubbed wrong on the foot. States there is some increasing redness over the top of the foot. Patient states she is also trying to get into [facility] for alcohol use. No fever ROS: See HPI - all other systems were reviewed and are otherwise negative Constitutional: no fever Integumentary: + rash Allergy: no hives Musculoskeletal: + extremity pain or swelling Neurological: no numbness/tingling, no weakness MEDICATIONS: I agree with the patient medications as charted by the RN. ALLERGIES: I agree with the allergies as charted by the RN. PAST MEDICAL HISTORY/PAST SURGICAL HISTORY: Reviewed and agree as charted by RN. SOCIAL HISTORY: Reviewed and agree as charted by RN. FAMILY HISTORY: No significant familial comorbid conditions directly related to patient complaint EXAM: Reviewed vital signs as charted by RN. CONSTITUTIONAL: Alert and oriented and responds appropriately to questions. Well-appearing; well-nourished HEAD: Normocephalic; atraumatic EYES: Conjunctivae clear, sclerae non-icteric ENT: normal nose; no rhinorrhea; moist mucous membranes NECK: Supple without meningismus CARD: symmetric distal pulses RESP: Normal chest excursion without splinting or tachypnea ABD/GI: non-distended BACK: The back appears normal EXT: Normal ROM in all joints; no cyanosis, no effusions, no edema SKIN: Normal color for age and race; warm; dry; good turgor; very slight erythema overlying the dorsal aspect of the left foot. Small abraded area on the dorsal aspect of the foot, no induration fluctuance. No bony tenderness NEURO: Moves all extremities equally; Motor and sensory function intact PSYCH: The patient's mood and manner are appropriate. Grooming and personal hygiene are appropriate. MDM: 39-year-old female with small cellulitis over the dorsal left foot. Erythema is approximately 2 or 3 cm total diameter. No induration or fluctuance small abraded area likely a blister that opened from the type shoe she was wearing. We will place her on a course of Keflex. Of contacted the social worker aide regarding the patient's medications as she states she cannot afford any medicines that she is homeless - REPRODUCTIVE Reproductive: DENIES: : Past Medical History - Social History Smoking Status: Unknown if Ever Smoked Family History: Reviewed & Not Pertinent Neurological Medical History: Reports: Hx Seizures Psychiatric Medical History: Reports: Hx Bipolar Disorder Past Surgical History: Reports: Hx Tubal Ligation Vertical Provider Document - INFECTION CONTROL TRAVEL OUTSIDE OF THE [place] IN LAST 30 DAYS: No Course - Vital Signs Vital signs: Temp Pulse Resp BP Pulse Ox 98.6 F 68 16 121/69 100 11/13/19 12:55 11/13/19 12:55 11/13/19 12:55 11/13/19 12:55 11/13/19 12:55 Discharge - Discharge Clinical Impression: Cellulitis of foot, left Condition: Stable Disposition: HOME, SELF-CARE Instructions: Cellulitis ([facility]) Additional Instructions: Take the medication as prescribed. Follow-up with a primary care provider for reevaluation of the area. If you develop fever greater than 101 or have worsening redness on the foot return for reevaluation. Keep the areas clean and dry as possible Prescriptions: Cephalexin Monohydrate [Keflex 500 mg Capsule] 500 mg PO Q6H 7 Days #28 capsule
== END 2019-11-13 13:18 | disposition home or self-care (01) ==
LOC: ER 12:07
DX: L03.116 Cellulitis of left lower limb (principal)
CPT/HCPCS: 99283